=== PATIENT | female | born 1960 | race Two or more races ===

== ENCOUNTER 2022-07-23 14:53 | Inpatient (IN) | payer MEDICAID ==
[~2022-07-23] VITALS: Ht 160 cm; Wt 60.3 kg
[2022-07-23 16:56] LABS: GLUCOMETER DEV NAME(LOC) POC.BV
[2022-07-23] MEDS ORDERED: HALOPERIDOL 5 MG TABLET PO PRN (17:00)
[2022-07-23] MEDS ORDERED: PNEUMOCOCCAL VACCINE POLYVALENT 0.5 ML VIAL [PPSV23] IM. ONE (17:15)
[2022-07-23] MEDS ORDERED: INFLUENZA VIRUS VACCINE QVS 2022-23 (6MO+)/PF 60 MCG/0.5 ML SYRINGE IM. ONE (17:15)
[2022-07-23 18:15] VITALS: BP 136/88
[2022-07-23 19:15] VITALS: BP 132/85
[2022-07-23 20:00] VITALS: BP 123/71
[2022-07-23 21:00] VITALS: BP 141/67
[2022-07-23] MEDS ORDERED: BENZOCAINE/MENTHOL LOZENGE PO PRN (21:45)
[2022-07-23] MEDS ORDERED: ALBUTEROL SULFATE HFA 90 MCG/PUFF 8 GM INHALER IH PRN (21:45)
[2022-07-23] MEDS ORDERED: MAGNESIUM HYDROXIDE SUSPENSION 30 ML UDCUP PO PRN (21:45)
[2022-07-23] MEDS ORDERED: DOCUSATE SODIUM 100 MG CAPSULE PO PRN (21:45)
[2022-07-23] MEDS ORDERED: ONDANSETRON HCL 4 MG TABLET PO PRN (21:45)
[2022-07-23] MEDS ORDERED: PETROLATUM,WHITE 28 GM JELLY TP PRN (21:45)
[2022-07-23] MEDS ORDERED: MAG HYDROX/AL HYDROX/SIMETH ES 30 ML SUSPENSION UDCUP PO PRN (21:45)
[2022-07-23] MEDS ORDERED: CloNIDine HCL 0.1 MG TABLET PO PRN (21:45)
[2022-07-23] MEDS ORDERED: BACITRACIN 28 GM OINTMENT TP PRN (21:45)
[2022-07-23] MEDS ORDERED: OMEPRAZOLE 20 MG CAPSULE PO PRN (21:45)
[2022-07-23] MEDS ORDERED: ACETAMINOPHEN 325 MG TABLET PO PRN (21:45)
[2022-07-24 05:00] VITALS: BP_SYST 139; BP_SYST 155; BP_DIAS 89; BP_DIAS 90
[2022-07-24 07:56] LABS: BASOPHILS % (AUTO) 2.3 % (0.0-2.0); EOSINOPHILS % (AUTO) 1.2 % (1.0-6.0); LYMPHOCYTES # (AUTO) 1.2 K/uL (1.0-4.8); LYMPHOCYTES % (AUTO) 42.4 % (22.0-44.0); MEAN CORPUSCULAR HEMOGLOBIN 35.5 pg (26.0-34.0); MEAN CORPUSCULAR HGB CONC 34.9 G/dL (31.0-37.0); MEAN CORPUSCULAR VOLUME 102 fL (80-100); MONOCYTES # (AUTO) 0.5 K/uL (0.1-1.0); MONOCYTES % (AUTO) 19.3 % (2.0-9.0); NEUTROPHILS % (AUTO) 34.8 % (40.0-70.0); PLATELET COUNT (AUTO) 38 K/uL (150-450); RED BLOOD CELL COUNT(AUTO) 3.93 MIL/uL (4.00-5.20); RED CELL DISTRIBUTION WIDTH 12.6 % (11.5-14.5)
[2022-07-24] MEDS: LORazepam 2 MG TABLET PO PRN ×3 (08:19→21:46)
[2022-07-24 08:35] LABS: ALANINE AMINOTRANSFERASE 131 U/L (12-78); ALBUMIN 3.5 g/dL (3.4-5.0); ALKALINE PHOSPHATASE 144 U/L (46-116); ANION GAP 7 mmol/L (8-16); ASPARTATE AMINOTRANSFERASE 306 U/L (15-37); BILIRUBIN,TOTAL 1.6 mg/dL (0.1-1.0); CALCIUM, TOTAL 8.9 mg/dL (8.8-10.5); CARBON DIOXIDE 30 mmol/L (22-29); CHLORIDE 97 mmol/L (98-107); CHOL/HDL RATIO 1.8 (3.9-5.7); CHOLESTEROL 217 mg/dL (131-200); CREATININE 0.73 mg/dL (0.60-1.30); FREE T4 (FREE THYROXINE) 0.96 ng/dL (0.76-1.46); GLOMERULAR FILTR. RATE CALC > 60 mL/min (>60); GLUCOSE,RANDOM 129 mg/dL (70-110); HDL CHOLESTEROL 118 mg/dL (40-60); LDL CHOL (CALC.) 91 mg/dL (0-130); POTASSIUM 4.1 mmol/L (3.5-5.1); SODIUM SERUM 134 mmol/L (136-145); THYROID STIMULATING HORMONE 1.81 uIU/mL (0.36-3.74); TOTAL PROTEIN, SERUM 8.7 g/dL (6.4-8.2); TRIGLYCERIDES 40 mg/dL (15-150); UREA NITROGEN, BLOOD 9 mg/dL (7-18)
[2022-07-24 08:45] LABS: HEMOGLOBIN A1C 5.4 % (3.8-5.6)
[2022-07-24 09:07] VITALS: BP 141/84
[2022-07-24] MEDS: FLUOCINONIDE 0.05% 15 GM CREAM TP SCH ×2 (13:17→17:21)
[2022-07-24 18:38] VITALS: BP 142/84
[2022-07-24 20:53] VITALS: BP 149/90
[2022-07-24] MEDS: ZOLPIDEM TARTRATE 10 MG TABLET PO PRN (21:46)
[2022-07-25 07:44] LABS: BASOPHILS % (AUTO) 2.1 % (0.0-2.0); EOSINOPHILS % (AUTO) 1.7 % (1.0-6.0); HEMATOCRIT 39.1 % (36-46); HEMOGLOBIN 13.2 g/dL (12.0-16.0); LYMPHOCYTES # (AUTO) 1.1 K/uL (1.0-4.8); LYMPHOCYTES % (AUTO) 39.8 % (22.0-44.0); MEAN CORPUSCULAR HEMOGLOBIN 34.3 pg (26.0-34.0); MEAN CORPUSCULAR HGB CONC 33.8 G/dL (31.0-37.0); MEAN CORPUSCULAR VOLUME 101 fL (80-100); MONOCYTES # (AUTO) 0.4 K/uL (0.1-1.0); MONOCYTES % (AUTO) 14.9 % (2.0-9.0); NEUTROPHILS # (AUTO) 1.1 K/uL (1.8-7.7); NEUTROPHILS % (AUTO) 41.5 % (40.0-70.0); PLATELET COUNT (AUTO) 46 K/uL (150-450); RED BLOOD CELL COUNT(AUTO) 3.86 MIL/uL (4.00-5.20); RED CELL DISTRIBUTION WIDTH 12.6 % (11.5-14.5)
[2022-07-25 08:00] LABS: ALANINE AMINOTRANSFERASE 130 U/L (12-78); ALBUMIN 3.7 g/dL (3.4-5.0); ALKALINE PHOSPHATASE 145 U/L (46-116); AMYLASE 44 U/L (25-115); ANION GAP 10 mmol/L (8-16); ASPARTATE AMINOTRANSFERASE 211 U/L (15-37); BILIRUBIN,TOTAL 1.6 mg/dL (0.1-1.0); CALCIUM, TOTAL 9.1 mg/dL (8.8-10.5); CARBON DIOXIDE 28 mmol/L (22-29); CHLORIDE 97 mmol/L (98-107); CREATININE 0.84 mg/dL (0.60-1.30); GLOMERULAR FILTR. RATE CALC > 60 mL/min (>60); GLUCOSE,RANDOM 129 mg/dL (70-110); LIPASE 174 U/L (73-393); PHOSPHORUS 4.4 mg/dL (2.5-4.9); POTASSIUM 3.7 mmol/L (3.5-5.1); SODIUM SERUM 135 mmol/L (136-145); TOTAL PROTEIN, SERUM 8.6 g/dL (6.4-8.2); UREA NITROGEN, BLOOD 14 mg/dL (7-18)
[2022-07-25 08:11] LABS: HEMOGLOBIN A1C 5.7 % (3.8-5.6)
[2022-07-25 08:28] VITALS: BP 114/71
[2022-07-25] MEDS: NALTREXONE HCL 50 MG TABLET PO SCH (10:15)
[2022-07-25] MEDS: FLUOCINONIDE 0.05% 15 GM CREAM TP SCH ×2 (10:15→16:40)
[2022-07-25] MEDS: LOPERAMIDE HCL 2 MG CAPSULE PO PRN ×3 (12:17→19:52)
[2022-07-25] MEDS: LORazepam 2 MG TABLET PO PRN (12:17)
[2022-07-26 01:22] VITALS: BP 128/83
[2022-07-26] MEDS: NALTREXONE HCL 50 MG TABLET PO SCH (08:17)
[2022-07-26] MEDS: FOLIC ACID 0.4 MG TABLET PO SCH (08:18)
[2022-07-26] MEDS: MAGNESIUM CHLORIDE 64 MG DR TABLET PO SCH (08:18)
[2022-07-26] MEDS: THIAMINE 100 MG TABLET PO SCH (08:19)
[2022-07-26] MEDS: FLUOCINONIDE 0.05% 15 GM CREAM TP SCH ×2 (08:19→16:21)
[2022-07-26] MEDS: LOPERAMIDE HCL 2 MG CAPSULE PO PRN (08:56)
[2022-07-26 10:08] VITALS: BP 158/93
[2022-07-26] MEDS: HYDROCHLOROTHIAZIDE 25 MG TABLET PO SCH (14:17)
[2022-07-26] MEDS: LOSARTAN POTASSIUM 25 MG TABLET PO SCH (16:20)
[2022-07-26] MEDS: LORazepam 2 MG TABLET PO PRN (18:57)
[2022-07-26 20:03] VITALS: BP 118/79
[2022-07-27] MEDS: NALTREXONE HCL 50 MG TABLET PO SCH (08:25)
[2022-07-27] MEDS: HYDROCHLOROTHIAZIDE 25 MG TABLET PO SCH (08:25)
[2022-07-27] MEDS: THIAMINE 100 MG TABLET PO SCH (08:25)
[2022-07-27] MEDS: LOSARTAN POTASSIUM 25 MG TABLET PO SCH (08:25)
[2022-07-27] MEDS: MAGNESIUM CHLORIDE 64 MG DR TABLET PO SCH (08:25)
[2022-07-27] MEDS: FOLIC ACID 0.4 MG TABLET PO SCH (08:25)
[2022-07-27] MEDS: FLUOCINONIDE 0.05% 15 GM CREAM TP SCH ×2 (09:54→17:17)
[2022-07-27] MEDS: LORazepam 2 MG TABLET PO PRN ×2 (10:35→20:16)
[2022-07-27 10:52] VITALS: BP 115/73
[2022-07-27] MEDS: LOPERAMIDE HCL 2 MG CAPSULE PO PRN (17:17)
[2022-07-27 22:05] VITALS: BP 101/70
[2022-07-28 08:45] VITALS: BP 102/63
[2022-07-28] MEDS: NALTREXONE HCL 50 MG TABLET PO SCH (09:09)
[2022-07-28] MEDS: FOLIC ACID 0.4 MG TABLET PO SCH (09:09)
[2022-07-28] MEDS: MAGNESIUM CHLORIDE 64 MG DR TABLET PO SCH (09:09)
[2022-07-28] MEDS: THIAMINE 100 MG TABLET PO SCH (09:09)
[2022-07-28] MEDS: LOSARTAN POTASSIUM 25 MG TABLET PO SCH (09:09)
[2022-07-28] MEDS: HYDROCHLOROTHIAZIDE 25 MG TABLET PO SCH (09:09)
[2022-07-28] MEDS: FLUOCINONIDE 0.05% 15 GM CREAM TP SCH ×2 (09:10→16:43)
[2022-07-28] MEDS: IBUPROFEN 600 MG TABLET PO PRN (16:43)
[2022-07-28 16:44] VITALS: BP 122/83
[2022-07-28 18:06] LABS: HEPATITIS C AB (EIA) Reactive (Non Reactive); HEPATITIS C RT-PCR,QNT 1550000 IU/mL
[2022-07-28 21:24] VITALS: BP 124/87
[2022-07-28] MEDS: ZOLPIDEM TARTRATE 10 MG TABLET PO PRN (21:58)
[2022-07-28] MEDS: LORazepam 2 MG TABLET PO PRN (21:59)
[2022-07-29 08:00] VITALS: BP 130/70
[2022-07-29] MEDS: THIAMINE 100 MG TABLET PO SCH (08:31)
[2022-07-29] MEDS: HYDROCHLOROTHIAZIDE 25 MG TABLET PO SCH (08:31)
[2022-07-29] MEDS: NALTREXONE HCL 50 MG TABLET PO SCH (08:31)
[2022-07-29] MEDS: LOSARTAN POTASSIUM 25 MG TABLET PO SCH (08:32)
[2022-07-29] MEDS: MAGNESIUM CHLORIDE 64 MG DR TABLET PO SCH (08:32)
[2022-07-29] MEDS: FOLIC ACID 0.4 MG TABLET PO SCH (08:32)
[2022-07-29] MEDS: SERTRALINE HCL 50 MG TABLET PO SCH (08:32)
[2022-07-29] MEDS: FLUOCINONIDE 0.05% 15 GM CREAM TP SCH ×2 (08:32→17:12)
[2022-07-29] MEDS: IBUPROFEN 600 MG TABLET PO PRN (12:32)
[2022-07-29] MEDS: LORazepam 2 MG TABLET PO PRN (12:33)
[2022-07-29 14:26] LABS: GLUCOMETER DEV NAME(LOC) POC.BV
[2022-07-29 20:00] VITALS: BP 104/59
[2022-07-29 21:27] VITALS: BP 104/59
[2022-07-30 08:34] VITALS: BP 127/63
[2022-07-30] MEDS: HYDROCHLOROTHIAZIDE 25 MG TABLET PO SCH (08:39)
[2022-07-30] MEDS: SERTRALINE HCL 50 MG TABLET PO SCH (08:39)
[2022-07-30] MEDS: LOSARTAN POTASSIUM 25 MG TABLET PO SCH (08:39)
[2022-07-30] MEDS: THIAMINE 100 MG TABLET PO SCH (08:39)
[2022-07-30] MEDS: FOLIC ACID 0.4 MG TABLET PO SCH (08:39)
[2022-07-30] MEDS: MAGNESIUM CHLORIDE 64 MG DR TABLET PO SCH (08:40)
[2022-07-30] MEDS: NALTREXONE HCL 50 MG TABLET PO SCH (08:40)
[2022-07-30] MEDS: FLUOCINONIDE 0.05% 15 GM CREAM TP SCH ×2 (09:00→16:13)
[2022-07-30] MEDS: LORazepam 2 MG TABLET PO PRN (10:27)
[2022-07-30 20:00] VITALS: BP 118/62
[2022-07-31] MEDS: FOLIC ACID 0.4 MG TABLET PO SCH (08:01)
[2022-07-31] MEDS: MAGNESIUM CHLORIDE 64 MG DR TABLET PO SCH (08:01)
[2022-07-31] MEDS: LOSARTAN POTASSIUM 25 MG TABLET PO SCH (08:02)
[2022-07-31] MEDS: FLUOCINONIDE 0.05% 15 GM CREAM TP SCH ×2 (08:02→17:00)
[2022-07-31] MEDS: THIAMINE 100 MG TABLET PO SCH (08:11)
[2022-07-31] MEDS: HYDROCHLOROTHIAZIDE 25 MG TABLET PO SCH (08:11)
[2022-07-31] MEDS: NALTREXONE HCL 50 MG TABLET PO SCH (08:11)
[2022-07-31] MEDS: SERTRALINE HCL 50 MG TABLET PO SCH (08:11)
[2022-07-31 08:34] VITALS: BP 115/63
[2022-07-31] MEDS: LORazepam 2 MG TABLET PO PRN ×2 (12:26→20:18)
[2022-07-31 20:03] VITALS: BP 121/60
[2022-08-01] MEDS ORDERED: SERT-439 PO (08:08)
[2022-08-01] MEDS: SERTRALINE HCL 50 MG TABLET PO SCH (08:24)
[2022-08-01] MEDS: NALTREXONE HCL 50 MG TABLET PO SCH (08:24)
[2022-08-01] MEDS: FOLIC ACID 0.4 MG TABLET PO SCH (08:24)
[2022-08-01] MEDS: MAGNESIUM CHLORIDE 64 MG DR TABLET PO SCH (08:25)
[2022-08-01] MEDS: FLUOCINONIDE 0.05% 15 GM CREAM TP SCH (08:25)
[2022-08-01] MEDS: THIAMINE 100 MG TABLET PO SCH (08:25)
[2022-08-01] MEDS: LOSARTAN POTASSIUM 25 MG TABLET PO SCH (08:25)
[2022-08-01] MEDS: HYDROCHLOROTHIAZIDE 25 MG TABLET PO SCH (08:25)
[2022-08-01] MEDS ORDERED: HYDR25TA2 PO (09:31)
[2022-08-01] MEDS ORDERED: MAGN64TA14 PO (09:31)
[2022-08-01] MEDS ORDERED: LOSA-381 PO (09:31)
== END 2022-08-01 13:53 | disposition home or self-care (01) | DRG 754 ==
LOC: B3A 17:00
PROVIDERS: ADMIT Psychiatry & Neurology Psychiatry; ATTEND Psychiatry & Neurology Psychiatry
DX: F32.9 Major depressive disorder, single episode, unspecified (principal); D69.6 Thrombocytopenia, unspecified; R45.851 Suicidal ideations; F41.9 Anxiety disorder, unspecified; E87.1 Hypo-osmolality and hyponatremia; G47.00 Insomnia, unspecified; L40.9 Psoriasis, unspecified; I10 Essential (primary) hypertension; F10.10 Alcohol abuse, uncomplicated; F11.10 Opioid abuse, uncomplicated; F17.200 Nicotine dependence, unspecified, uncomplicated; Z59.00 Homelessness unspecified; Z20.822 Contact with and (suspected) exposure to COVID-19
CPT/HCPCS: 80053; 80061; 80074; 82140; 82150; 83036; 83690; 83735; 84100; 84439; 84443; 85025; 87522; Q0162